=== PATIENT | female | born 1980 | race Caucasian/White ===

== ENCOUNTER 2016-11-09 10:41 | Emergency (ER) | payer OTHER ==
[~2016-11-09] VITALS: Ht 152.4 cm; Wt 70.3 kg
[2016-11-09 10:43] VITALS: TEMP 36.7; Ht 152.4 cm; Wt 70.3 kg
[2016-11-09] MEDS ORDERED: ACETAMINOPHEN 500 MG TAB PO STA (11:14)
[2016-11-09 11:51] LABS: BASO % 0.1 %; BASO ABS # 0.01 K/uL (0-0.2); COMPLETE YES; EOS % 0.7 %; HEMATOCRIT 39.7 % (37-47); IG% 0.4 %; LYMPH ABS # 1.03 K/uL (1.2-3.4); MEAN CORPUSCULAR HGB CONC 35.3 g/dl (32-36); MEAN PLATELET VOLUME 12.3 fL (7.4-10.4); MONO % 5.8 %; PLATELET COUNT 155 K/uL (130-400); RED BLOOD COUNT 4.67 M/uL (4.2-5.4); WHITE BLOOD COUNT 10.31 K/uL (4.8-10.8)
[2016-11-09 12:01] LABS: PARTIAL THROMBOPLASTIN RATIO 1.2; PROTHROMBIN TIME (PATIENT) 10.3 SECONDS (9.0-12.0)
[2016-11-09 12:17] LABS: BUN/CREATININE RATIO 12.6 (10-20); CALCIUM 9.1 mg/dl (8.5-10.1); CREATININE 0.95 mg/dl (0.60-1.20); POTASSIUM 3.6 mmol/L (3.5-5.1)
--- NOTE | 2016-11-09 13:02 | DIAGNOSTIC IMAGING REPORT ---
KUB CLINICAL HISTORY: ABDOMINAL PAIN/GI pain. Nausea. COMPARISON STUDY: No previous studies for comparison. FINDINGS: The soft tissues, psoas shadows, renal outlines and intestinal gas pattern appear normal. There is no evidence for bowel obstruction. No abnormal abdominal calcifications are seen. IMPRESSION: Normal study. Electronically signed by: Ziyad Bronson M.D. 11/09/2016 1:00 PM Dictated Date/Time: 11/09/2016 12:59 PM
[2016-11-09 13:51] VITALS: BP 116/76; PULSE 94; O2SAT 97
--- NOTE | 2016-11-09 17:13 | EMERGENCY ROOM VISIT NOTE ---
History First contact with patient: 10:50 Chief Complaint: ABDOMINAL PAIN Stated Complaint: RECTAL BLEEDING, SEVERE STOMACH PAIN Nursing Triage Summary: Patient c/o bright red blood in stool when she has a bowel movement, this has occured for the last few days. Today she started having mid lower abd/pelvid pain, pain increases with cough. Bleed is getting worse. 2 weeks ago had procedure on cervix where "they went in and freezed it". Denies vaginal bleeding. History of Present Illness The patient is a 36 year old female who presents to the Emergency Room with complaints of a 3 day history of bright red rectal bleeding and lower abdominal discomfort that started this morning. The patient reports no prior history of GI bleed. She initially noticed blood on the toilet paper when it started. The patient denies any recent significant constipation. She denies history of bowel disease. She does have an extensive family history of bowel disease and breast cancer. The patient reports worsening abdominal pain over the past few days. She did have a LEEP procedure performed 2 weeks ago. She has had clear drainage since the procedure, but denies any bleeding. The patient cannot rule out . The patient did try Dulcolax suppositories 2 days for what she thought was constipation. She does report a prior history of kidney stones, but reports that this feels different. She currently rates her discomfort a 7 out of 10. Review of Systems HEENT: Denies dizziness, visual problems, hearing loss, tinnitus. Denies difficulty swallowing or oral lesions. PULMONARY: Denies cough, shortness of breath, sputum production or hemoptysis. CARDIOVASCULAR: Denies chest pain, palpitations, dyspnea on exertion, orthopnea or peripheral edema. GASTROINTESTINAL: See history of present illness. GENITOURINARY: Denies dysuria, frequency, urgency or nocturia. NEUROLOGIC: Denies history of epilepsy, CVA, TIA or chronic headaches. MUSCULOSKELETAL: Denies history of joint tenderness/swelling. SKIN: Denies rashes or lesions. PSYCHIATRIC: Denies history of depression or mental illness. ENDOCRINE: Denies history of diabetes or thyroid disorders. Past Medical/Surgical History Medical Problems: (1) No significant past medical history Surgical Problems: (1) No history of previous surgery Family History Unremarkable Social History Smoking Status: Never Smoker Alcohol Use: occasionally Marital Status: Occupation Status: employed Current/Historical Medications No Active Prescriptions or Reported Meds Allergies Coded Allergies: No Known Allergies (Unverified , 11/09/16) Physical Exam Vital Signs Date Time Temp Pulse Resp B/P Pulse Ox O2 Delivery O2 Flow Rate FiO2 11/09/16 13:51 94 18 116/76 97 Room Air 11/09/16 12:12 92 17 120/73 97 Room Air 11/09/16 10:43 36.7 102 19 126/76 98 Room Air Physical Exam CONSTITUTIONAL: Healthy and well nourished. Alert and oriented X 3 with positive affect. Patient does not appear in any acute distress, nor does she appear acutely or toxic. HEENT: Normocephalic, atraumatic. Pupils equal, round and reactive. Ears and nares are clear. No scleral icterus or conjunctival pallor. NECK: Full active range of motion without discomfort. RESPIRATORY: Clear to auscultation bilaterally with no wheezing, crackles, rhonchi or stridor. CARDIOVASCULAR: Regular rate and rhythm with no murmurs, rubs or gallops. GASTROINTESTINAL: Bowel sounds present in all quadrants. Patient has suprapubic tenderness to palpation. No focal left lower quadrant or right lower quadrant tenderness to palpation. No rigidity, guarding or rebound. Negative CVA tenderness. MUSCULOSKELETAL: Full range of motion of all joints without discomfort. Negative logroll. Negative straight leg raise. INTEGUMENTARY: No rash or other significant dermatologic conditions noted. HEMATOLOGIC: No ecchymosis or petechiae. NEUROLOGIC: No focal neurologic deficits noted. Medical Decision & Procedures ER Provider Diagnostic Interpretation: My interpretation of a KUB x-ray does not show any significant fecal load, obstruction or free air. Radiologist report is as follows: KUB CLINICAL HISTORY: ABDOMINAL PAIN/GI pain. Nausea. COMPARISON STUDY: No previous studies for comparison. FINDINGS: The soft tissues, psoas shadows, renal outlines and intestinal gas pattern appear normal. There is no evidence for bowel obstruction. No abnormal abdominal calcifications are seen. IMPRESSION: Normal study. Laboratory Results 11/09/16 11:30 Red Blood Count 4.67, Mean Corpuscular Volume 85.0, Mean Corpuscular Hemoglobin 30.0, Mean Corpuscular Hemoglobin Concent 35.3, Mean Platelet Volume 12.3, Neutrophils (%) (Auto) 83.0, Lymphocytes (%) (Auto) 10.0, Monocytes (%) (Auto) 5.8, Eosinophils (%) (Auto) 0.7, Basophils (%) (Auto) 0.1, Neutrophils # (Auto) 8.56, Lymphocytes # (Auto) 1.03, Monocytes # (Auto) 0.60, Eosinophils # (Auto) 0.07, Basophils # (Auto) 0.01 11/09/16 11:30 Test 11/09/16 11:30 11/09/16 11:46 White Blood Count 10.31 K/uL (4.8-10.8) Red Blood Count 4.67 M/uL (4.2-5.4) Hemoglobin 14.0 g/dL (12.0-16.0) Hematocrit 39.7 % (37-47) Mean Corpuscular Volume 85.0 fL (80-100) Mean Corpuscular Hemoglobin 30.0 pg (25-34) Mean Corpuscular Hemoglobin Concent 35.3 g/dl (32-36) Platelet Count 155 K/uL (130-400) Mean Platelet Volume 12.3 fL (7.4-10.4) Neutrophils (%) (Auto) 83.0 % Lymphocytes (%) (Auto) 10.0 % Monocytes (%) (Auto) 5.8 % Eosinophils (%) (Auto) 0.7 % Basophils (%) (Auto) 0.1 % Neutrophils # (Auto) 8.56 K/uL (1.4-6.5) Lymphocytes # (Auto) 1.03 K/uL (1.2-3.4) Monocytes # (Auto) 0.60 K/uL (0.11-0.59) Eosinophils # (Auto) 0.07 K/uL (0-0.5) Basophils # (Auto) 0.01 K/uL (0-0.2) RDW Standard Deviation 38.1 fL (36.4-46.3) RDW Coefficient of Variation 12.4 % (11.5-14.5) Immature Granulocyte % (Auto) 0.4 % Immature Granulocyte # (Auto) 0.04 K/uL (0.00-0.02) Prothrombin Time 10.3 SECONDS (9.0-12.0) Prothromb Time International Ratio 1.0 (0.9-1.1) Activated Partial Thromboplast Time 30.3 SECONDS (21.0-31.0) Partial Thromboplastin Ratio 1.2 Anion Gap 6.0 mmol/L (3-11) Est Creatinine Clear Calc Drug Dose 73.0 ml/min Estimated GFR () 90.6 Estimated GFR (Non- 78.1 BUN/Creatinine Ratio 12.6 (10-20) Calcium Level 9.1 mg/dl (8.5-10.1) Total Bilirubin 0.7 mg/dl (0.2-1) Direct Bilirubin 0.2 mg/dl (0-0.2) Aspartate Amino Transf (AST/SGOT) 29 U/L (15-37) Alanine Aminotransferase (ALT/SGPT) 53 U/L (12-78) Alkaline Phosphatase 129 U/L (45-117) Total Protein 6.9 gm/dl (6.4-8.2) Albumin 3.4 gm/dl (3.4-5.0) Lipase 121 U/L (73-393) Urine Test NEG (NEG) The above labs were reviewed and were grossly normal. Medications Administered Medications (Trade) Dose Ordered Sig/Ana Maria Route Start Time Stop Time Status Last Admin Dose Admin Acetaminophen (Tylenol Tab) 1,000 mg NOW STAT PO 11/09/16 11:14 11/09/16 11:18 DC 11/09/16 11:49 1,000 MG ED Course Patient history and physical exam were performed. Nurse's notes were reviewed. Vital signs were reviewed and normal. IV access was established, and labs were drawn. The patient was hydrated with a liter normal saline. She requested Tylenol for pain, and was administered Tylenol 1 g orally. Review of labs shows no acute findings. A KUB x-ray was also normal. At this point, I suggested that the patient contact the [facility] gastroenterology office (Dr. Holt) for further reevaluation and management. The patient currently does not have a family doctor, and she has O insurance. She was instructed to return to the emergency department for any significantly worsening bleeding, abdominal pain, vomiting or fever. The patient was happy with plan of care, voiced understanding of all discharge instructions, and denied any significant discomfort at the time of discharge. Medical Decision Patient presents to the emergency department with complaint of rectal bleeding. Her labs today shows that she is chronically stable. She does not show any significant coagulopathy at this time. She is afebrile and has no leukocytosis. LFTs are normal. Urine dip is not suggestive of infection. Urine is negative. At this point, I feel that outpatient [facility] urology follow-up is warranted, and does not require hospitalist evaluation for observation/admission. The patient was given instructions to return for any worsening condition. Impression Primary Impression: Rectal bleed Departure Information Prescriptions No Active Prescriptions or Reported Meds Referrals No Doctor, Assigned (PCP) Patient Instructions My [facility]
== END 2016-11-09 14:18 | disposition home or self-care (01) ==
LOC: C.EDB 10:43 → C.EDC 14:18
DX: K62.5 Hemorrhage of anus and rectum (principal)

== ENCOUNTER → 2017-05-22 | Outpatient (CLI) | payer OTHER ==
--- NOTE | 2017-05-22 11:04 | DIAGNOSTIC IMAGING REPORT ---
BILIARY ULTRASOUND CLINICAL HISTORY: NAUSEA COMPARISON STUDY: No previous studies for comparison. FINDINGS: The pancreas appears sonographically normal. The liver appears sonographically normal. The gallbladder appears sonographically normal. There is no ductal dilatation. The common bile duct measures 3 mm. There is no right-sided hydronephrosis. IMPRESSION: Normal biliary ultrasound. Electronically signed by: Misbah Sarkar M.D. 05/22/2017 11:03 AM Dictated Date/Time: 05/22/2017 11:02 AM
== END | disposition home or self-care (01) ==
LOC: C.ULTR 10:22
PROVIDERS: ATTEND Physician Assistant
DX: R11.0 Nausea (principal)

== ENCOUNTER → 2017-06-19 | Outpatient (CLI) | payer OTHER ==
[2017-06-23 12:37] LABS: HERPES SIMPLEX AB IGG-2 < 0.90 INDEX (< 0.90); HSV1 AB IGM Negative (Negative); HSV2 AB IGM Negative (Negative)
== END | disposition home or self-care (01) ==
LOC: C.LABPBG 12:35
PROVIDERS: ATTEND Physician Assistant
DX: N90.9 Noninflammatory disorder of vulva and perineum, unspecified (principal)

== ENCOUNTER → 2017-10-18 | Outpatient (CLI) | payer OTHER | END | disposition home or self-care (01) | LOC: C.LABSPEC 17:06 | PROVIDERS: ATTEND Physician Assistant | DX: R39.9 Unspecified symptoms and signs involving the genitourinary system (principal) ==

== ENCOUNTER → 2017-11-06 | Outpatient (CLI) | payer OTHER | END | disposition home or self-care (01) | LOC: C.LABPBG 15:21 | PROVIDERS: ATTEND Physician Assistant | DX: E55.9 Vitamin D deficiency, unspecified (principal); R39.9 Unspecified symptoms and signs involving the genitourinary system ==

== ENCOUNTER → 2018-03-10 | Outpatient (CLI) | payer OTHER ==
--- NOTE | 2018-03-10 19:37 | DIAGNOSTIC IMAGING REPORT ---
R LOWER EXT NONJOINT WITHOUT CLINICAL HISTORY: 37 years-old Female presenting with RIGHT FOOT INJURY, injury on Saturday, broken toes, concern for tendon injury, tenderness along the dorsum and medial aspect of the foot, marker placed. TECHNIQUE: Multisequence, multiplanar MR imaging of the right foot was performed without the use of intravenous contrast. IV contrast: None. COMPARISON: None. FINDINGS: Localizer images: Unremarkable. Small ankle joint effusion. Visualized portion of the hindfoot and midfoot normal. The forefoot demonstrates a marker over the medial aspect of the first metatarsophalangeal joint. Subjacent to this, extensive subcutaneous edema is evident over the proximal first toe as well as the medial aspect and dorsum of the forefoot. There may be an incomplete linear signal abnormality over the plantar and medial aspect of the head of the first metatarsal (series 4 image 21; series 8 image 15). No complete fracture. No significant bony edema is evident either in the forefoot or toes. Dorsal and the large tendons of the toes intact. No tenderness abnormality subjacent to the marker. IMPRESSION: Findings most consistent with soft tissue contusion and possible incomplete fracture of the first metatarsal head. No significant bony edema. Findings of an incomplete fracture are equivocal. No other evidence of fracture. No tendinous injury is apparent. Findings could be correlated with plain radiographs. Electronically signed by: Evelio Morgan M.D. 03/10/2018 7:35 PM Dictated Date/Time: 03/10/2018 7:29 PM
== END | disposition home or self-care (01) ==
LOC: C.MRI 18:43
PROVIDERS: ATTEND Podiatrist Foot & Ankle Surgery
DX: S99.921A Unspecified injury of right foot, initial encounter (principal); X58.XXXA Exposure to other specified factors, initial encounter